=== PATIENT | female | born 1985 | race Caucasian/White ===

== ENCOUNTER 2017-07-03 18:17 | Emergency (ER) | payer OTHER ==
[~2017-07-03] VITALS: Ht 152.4 cm; Wt 117.9 kg
--- NOTE | 2017-07-03 18:52 | NUR ---
A/OX4, AMBULATORY TO ED BED 07, PT IS C/O PAIN TO RT SIDE OF BACK AND RT UPPER QUADRANT X24HRS, N/V/D. PT STS SHE HAS A HISTORY OF GALL STONES. NAD VSS RR EVEN AND UNLABORED. SKIN IS WARM AND DIAPHORETIC. PENDING ER MD EVALUATION
[2017-07-03] MEDS ORDERED: MORPHINE SULFATE INJ 2 MG/ML DISP.SYRIN IV ONE (19:00)
[2017-07-03] MEDS ORDERED: IV NS 0.9% 1,000 ML BAG IV ONE (19:00)
[2017-07-03] MEDS ORDERED: ONDANSETRON HCL/PF 4 MG/2 ML VIAL IVP ONE (19:00)
[2017-07-03 19:21] LABS: APPEARANCE,URINE CLEAR (CLEAR); BILIRUBIN,URINE NEGATIVE (NEGATIVE); BLOOD, URINE 3+ Ery/uL (NEGATIVE); COLOR,URINE YELLOW (YELLOW); KETONES,URINE NEGATIVE (NEGATIVE); LEUKOCYTE ESTERASE ,URINE NEGATIVE (NEGATIVE); NITRITE, URINE NEGATIVE (NEGATIVE); PH,URINE 5.5 (5.0-8.0); PROTEIN,URINE NEGATIVE (NEGATIVE); UGLUCOSE NEGATIVE (NEGATIVE); UROBILINOGEN,URINE 0.2 EU/dL (0.2)
--- NOTE | 2017-07-03 19:21 | NUR ---
REPORT RECEIVED FROM DEMETRIS STERLING FOR DEBBY.
--- NOTE | 2017-07-03 19:32 | NUR ---
PT TO CT VIA STRETCHER.
[2017-07-03 19:39] LABS: BASOPHILS % (AUTO) 0.3 % (0.0-2.0); EOSINOPHILS % (AUTO) 0.2 % (0.0-6.0); HEMATOCRIT 42 % (33-45); HEMOGLOBIN 14.1 g/dL (11.5-14.8); MEAN CORPUSCULAR HEMOGLOBIN 29 PG (26.0-33.0); MEAN CORPUSCULAR HGB CONC 34 g/dl (31.0-36.0); MEAN CORPUSCULAR VOLUME 87 fL (82-100); MONOCYTES # (AUTO) 0.3 /CMM (0.1-1.30); MONOCYTES % (AUTO) 4.3 % (2.0-12.0); NEUTROPHILS # (AUTO) 6.8 /CMM (1.8-8.9); NEUTROPHILS % (AUTO) 83.2 % (43.0-81.0); PLATELET COUNT (AUTO) 162 /CMM (150-450); RDW COEFFICIENT OF VARIATION 13.3 (11.5-15.0); RED BLOOD CELL COUNT(AUTO) 4.78 MIL/uL (4.0-5.2); WHITE BLOOD COUNT (AUTO) 8.2 K/uL (4.3-11.0)
[2017-07-03 19:43] LABS: CALCIUM, SERUM 8.3 mg/dL (8.5-10.1); CREATININE 0.8 mg/dL (0.6-1.3); POTASSIUM 3.5 mmol/L (3.5-5.1)
[2017-07-03 19:48] LABS: ALBUMIN 3.6 g/dL (3.4-5.0); BILIRUBIN,DIRECT 0.1 mg/dL (0.0-0.2); BILIRUBIN,TOTAL 0.5 mg/dL (0.2-1.0); TOTAL PROTEIN, SERUM 7.6 g/dL (6.4-8.2)
[2017-07-03 19:57] LABS: BACTERIA,URINE 1+ /HPF (None Seen); MUCUS,URINE Few /LPF (None Seen)
[2017-07-03] MEDS ORDERED: ONDANSETRON HCL/PF 4 MG/2 ML VIAL ONE (20:40)
[2017-07-03] MEDS ORDERED: MORPHINE SULFATE INJ 2 MG/ML DISP.SYRIN ONE (20:40)
[2017-07-03] MEDS ORDERED: MORPHINE SULFATE INJ 4 MG/ML DISP.SYRIN ONE (20:41)
[2017-07-03] MEDS ORDERED: KETOROLAC TROMETHAMINE INJ 30 MG/ML VIAL IV ONE (21:30)
[2017-07-03] MEDS ORDERED: KETOROLAC TROMETHAMINE INJ 30 MG/ML VIAL ONE (21:32)
[2017-07-03 22:05] VITALS: BP 119/64
--- NOTE | 2017-07-03 22:06 | NUR ---
Patient discharged to family member for transport home in stable condition. Written and verbal after care instructions given. Patient verbalizes understanding of instruction. IV removed. Catheter intact and site benign. Pressure and 4x4 applied to site. No bleeding noted. Pt ambulatory with a steady gait. VSS, NAD noted on DC. Denies complaint on DC.
== END 2017-07-03 22:07 | disposition home or self-care (01) ==
LOC: ER 18:26
DX: K80.50 Calculus of bile duct without cholangitis or cholecystitis without obstruction (principal); E66.9 Obesity, unspecified; Z88.2 Allergy status to sulfonamides; Z87.442 Personal history of urinary calculi
CPT/HCPCS: 36415; 74176; 76705; 80048; 80076; 81001; 83605; 83690; 84703; 85025; 96361; 96374; 96375; 99285; A4606; J1885; J2270 ×2; J2405; J7030; Z7610; 81000-TC

== ENCOUNTER 2017-07-04 13:18 | Outpatient (CLI) | payer OTHER ==
[2017-07-04 13:26] VITALS: BP 109/61
== END 2017-07-04 23:59 | disposition home or self-care (01) ==
LOC: MSC 13:18
PROVIDERS: ATTEND Internal Medicine
DX: K80.20 Calculus of gallbladder without cholecystitis without obstruction (principal); E66.9 Obesity, unspecified

== ENCOUNTER 2017-07-04 15:00 | Inpatient (IN) | payer OTHER ==
[~2017-07-04] VITALS: Ht 152.4 cm; Wt 110.0 kg
--- NOTE | 2017-07-04 15:20 | NUR ---
PT CAME IN WITH C/O ABD PAIN W/ NAUSEA, SENT FROM THE CLINIC FOR POSSIBLE SURGERY. VSS. SEEN BY PA FOR EVAL. PT WAS HERE FOR SAME SYMPTOMS YESTERDAY. SAFETY AND COMFORT MEASURES PROVIDED. PT GOWNED. FAMILY MEMBER REMAINS AT BS. WILL MONITOR.
[2017-07-04] MEDS ORDERED: ONDANSETRON HCL/PF 4 MG/2 ML VIAL ONE (15:58)
[2017-07-04] MEDS ORDERED: MORPHINE SULFATE INJ 4 MG/ML DISP.SYRIN ONE (15:59)
[2017-07-04] MEDS ORDERED: IV NS 0.9% 1,000 ML BAG IV ONE (16:00)
[2017-07-04] MEDS ORDERED: ONDANSETRON HCL/PF 4 MG/2 ML VIAL IVP ONE (16:00)
[2017-07-04] MEDS ORDERED: MORPHINE SULFATE INJ 2 MG/ML DISP.SYRIN IV ONE (16:00)
--- NOTE | 2017-07-04 16:00 | NUR ---
IV ACCESS STARTED. BLOOD DRAWN FOR LABS. MEDICATED ORDERED.
[2017-07-04 16:08] LABS: BASOPHILS # (AUTO) 0.2 /CMM (0.0-0.2); BASOPHILS % (AUTO) 3.1 % (0.0-2.0); EOSINOPHILS % (AUTO) 0.5 % (0.0-6.0); HEMATOCRIT 40 % (33-45); HEMOGLOBIN 13.3 g/dL (11.5-14.8); LYMPHOCYTES # (AUTO) 1.1 /CMM (0.8-4.8); LYMPHOCYTES % (AUTO) 20.4 % (20.0-44.0); MEAN CORPUSCULAR HEMOGLOBIN 29 PG (26.0-33.0); MEAN CORPUSCULAR HGB CONC 34 g/dl (31.0-36.0); MEAN CORPUSCULAR VOLUME 85 fL (82-100); MONOCYTES # (AUTO) 0.4 /CMM (0.1-1.30); MONOCYTES % (AUTO) 7.5 % (2.0-12.0); NEUTROPHILS # (AUTO) 3.7 /CMM (1.8-8.9); NEUTROPHILS % (AUTO) 68.5 % (43.0-81.0); PLATELET COUNT (AUTO) 180 /CMM (150-450); RED BLOOD CELL COUNT(AUTO) 4.64 MIL/uL (4.0-5.2); WHITE BLOOD COUNT (AUTO) 5.4 K/uL (4.3-11.0)
[2017-07-04 16:10] LABS: CALCIUM, SERUM 8.7 mg/dL (8.5-10.1); CREATININE 0.5 mg/dL (0.6-1.3); POTASSIUM 4.5 mmol/L (3.5-5.1)
[2017-07-04 16:14] LABS: INR 0.93 (0.85-1.15)
[2017-07-04 16:16] LABS: ALBUMIN 3.2 g/dL (3.4-5.0); BILIRUBIN,DIRECT 0.1 mg/dL (0.0-0.2); BILIRUBIN,TOTAL 0.3 mg/dL (0.2-1.0); TOTAL PROTEIN, SERUM 7.2 g/dL (6.4-8.2)
[2017-07-04 16:41] LABS: APPEARANCE,URINE Clear (CLEAR); BILIRUBIN,URINE Negative (NEGATIVE); BLOOD, URINE Large Ery/uL (NEGATIVE); KETONES,URINE Negative (NEGATIVE); LEUKOCYTE ESTERASE ,URINE Negative (NEGATIVE); NITRITE, URINE Negative (NEGATIVE); PROTEIN,URINE Negative (NEGATIVE); UGLUCOSE Negative (NEGATIVE)
[2017-07-04 16:42] LABS: COLOR,URINE Dark Yellow (YELLOW)
[2017-07-04 16:47] LABS: BACTERIA,URINE Rare /HPF (None Seen); SQUAMOUS EPITHELIAL CELL,UR Moderate /HPF (None Seen); WBC,URINE 0-3 /HPF (0-3)
--- NOTE | 2017-07-04 17:19 | NUR ---
PAGED MEDICARE BILLER PANEL
--- NOTE | 2017-07-04 17:49 | NUR ---
CALLED NIKIA MIRANDA FOR MS ROOM IN FIRST FLOOR PER PT'S REQUEST AND PER 'S PT CANNOT TOLERATE ELEVATORS.
[2017-07-04] MEDS ORDERED: ONDANSETRON HCL/PF 4 MG/2 ML VIAL IVP PRN (18:30)
[2017-07-04] MEDS ORDERED: Z GUARD REMEDY 2 OZ OINT TP PRN (18:30)
[2017-07-04] MEDS ORDERED: ACETAMINOPHEN 325 MG TABLET PO PRN (18:30)
[2017-07-04] MEDS ORDERED: MAGNESIUM HYDROXIDE 30 ML UDC PO PRN (18:30)
[2017-07-04] MEDS ORDERED: HYDROMORPHONE INJ 2 MG/ML DISP.SYRIN IV PRN (18:30)
[2017-07-04] MEDS ORDERED: MAG HYDROX/AL HYDROX/SIMETH 30 ML UDC PO PRN (18:30)
[2017-07-04] MEDS ORDERED: ZOLPIDEM TARTRATE 5 MG TABLET PO PRN (18:30)
--- NOTE | 2017-07-04 18:34 | NUR ---
REPORT GIVEN TO BOSSMAN WILLSON FOR MS 112.
[2017-07-04] MEDS: IV D5/0.45 NACL 1,000 ML IV PRN (18:45)
[2017-07-04 18:52] VITALS: BP 110/63
--- NOTE | 2017-07-04 18:54 | NUR ---
MS/SAFETY PIN ASSEMBLING MACHINE OPERATOR RECEIVED PATIENT FROM ER IN STABLE CONDITION. A/O X4. NO SIGNS OF ACUTE DISTRESS. NO COMPLAIN OF PAIN OR DISCOMFORT. AMBULATORY, CONTINENT OF BOWEL AND BLADDER. ADMITTING DIAGNOSIS OF ABDOMINAL PAIN/REMOVAL OF GALL STONES. ALL NEEDS ATTENDED TO. CALL LIGHT WITHIN REACH. WILL ENDORSE TO NEXT SHIFT FOR CONTINUITY OF CARE.
--- NOTE | 2017-07-04 19:20 | NUR ---
MS/RN NOTES RECEIVED PT. LYING IN BED. AWAKE, ALERT AND ORIENTED X4. BREATHING EVEN, AND UNLABORED ON ROOM AIR. NO SOB, RESPIRATORY DISTRESS OR COMPLAINTS OF PAIN NOTED AT THIS TIME. PT. WITH RIGHT HAND 20 GAUGE PERIPHERAL IV PRESENT, PATENT AND INTACT ADMINISTERING TO PT. D5 1/2 NS @ 75 ML/HR. PT. WITH FAMILY MEMBER PRESENT AT BEDSIDE. BED LOCKED AND IN LOWEST POSITION, SIDE RAILS UP X2, CALL LIGHT WITHIN REACH, WILL CONTINUE TO MONITOR.
--- NOTE | 2017-07-04 19:30 | NUR ---
MS/RN NOTES PATIENT REMAINS NPO AT THIS TIME PENDING HIDA SCAN. PER DAYSHIFT NURSE RADIOLOGY WAS UNABLE TO DUE THE HIDASCAN EARLIER BECAUSE PT. HAD RECEIVED MORPHINE IN THE ER AND PER RADIOLOGY PT. HAS TO HAVE 8 HOURS WITHOUT MORPHINE(PAIN MEDICATION) BEFORE HAVING THE HIDA SCAN. WILL CONTINUE TO MONITOR.
--- NOTE | 2017-07-05 06:37 | NUR ---
MS/RN NOTES PT. IS LYING IN BED RESTING. BREATHING EVEN, AND UNLABORED ON ROOM AIR. NO SOB, RESPIRATORY DISTRESS OR COMPLAINTS OF PAIN NOTED AT THIS TIME. PT. WITH RIGHT HAND 20 GAUGE PERIPHERAL IV PRESENT, PATENT AND INTACT ADMINISTERING TO PT. D5 1/2 NS @ 75 ML/HR. PT. WITH FAMILY MEMBER PRESENT AT BEDSIDE. ALL PT. NEEDS MET. PT. REMAINS NPO PENDING HIDA SCAN. BED LOCKED AND IN LOWEST POSITION, SIDE RAILS UP X2, CALL LIGHT WITHIN REACH, WILL ENDORSE TO DAYSHIFT NURSE FOR CONTINUITY OF CARE.
[2017-07-05 07:28] LABS: BASOPHILS % (AUTO) 0.4 % (0.0-2.0); EOSINOPHILS # (AUTO) 0.1 /CMM (0.0-0.7); EOSINOPHILS % (AUTO) 1.3 % (0.0-6.0); HEMATOCRIT 39 % (33-45); HEMOGLOBIN 13.1 g/dL (11.5-14.8); LYMPHOCYTES # (AUTO) 1.5 /CMM (0.8-4.8); LYMPHOCYTES % (AUTO) 34.7 % (20.0-44.0); MEAN CORPUSCULAR HEMOGLOBIN 30 PG (26.0-33.0); MEAN CORPUSCULAR HGB CONC 34 g/dl (31.0-36.0); MEAN CORPUSCULAR VOLUME 87 fL (82-100); MONOCYTES # (AUTO) 0.5 /CMM (0.1-1.30); NEUTROPHILS # (AUTO) 2.2 /CMM (1.8-8.9); NEUTROPHILS % (AUTO) 51.6 % (43.0-81.0); PLATELET COUNT (AUTO) 170 /CMM (150-450); RDW COEFFICIENT OF VARIATION 13.7 (11.5-15.0); RED BLOOD CELL COUNT(AUTO) 4.41 MIL/uL (4.0-5.2); WHITE BLOOD COUNT (AUTO) 4.3 K/uL (4.3-11.0)
[2017-07-05 07:35] LABS: BILIRUBIN,TOTAL 0.3 mg/dL (0.2-1.0); CALCIUM, SERUM 8.4 mg/dL (8.5-10.1); CREATININE 0.6 mg/dL (0.6-1.3); MAGNESIUM 1.9 mg/dL (1.8-2.4); PHOSPHORUS 3.2 mg/dL (2.5-4.9); POTASSIUM 3.5 mmol/L (3.5-5.1); TOTAL PROTEIN, SERUM 6.6 g/dL (6.4-8.2)
[2017-07-05 08:00] VITALS: BP 99/58
--- NOTE | 2017-07-05 08:10 | NUR ---
RN MED-SURG NOTE: PATIENT IN BED, AWAKE ALERT AND VERBALLY RESPONSIVE. FAMILY PRESENT AT THE BEDSIDE. KEPT NPO DUE TO THE HIDA SCAN TEST IN AM. RESPIRATION EVEN AND UNLABORED. SATURATING WELL IN RA 97%. (R) HAND IV LINE NOTED PATENT AND INTACT W/ D5HNS @ 75ML/HR. CALL LIGHT WITHIN REACH. BED ALARM AND LOCKED AT ALL TIMES. NEEDS ANTICIPATED. DISCUSSED W/ PATIENT RE: HIDA SCAN AND THAT MORPHINE CAN NOT BE ADMINISTER 4 HR PRIOR TO THE TEST. PER DEWAYNE FROM RADIOLOGY DEPT. THE TEST IS SCHEDULE AT 1130 AM.
--- NOTE | 2017-07-05 11:10 | NUR ---
RN MED-SURG NOTE: PATIENT WAS BROUGHT TO RADIOLOGY DEPT. FOR HIDA SCAN TEST. ON STABLE CONDITION. ABLE TO WALK AND WAS ACCOMPANIED BY FAMILY MEMBER TO THE TEST. (R) UPPER QUADRANT PAIN 6/10 BUT STATED THAT IT'S TOLERABLE FOR HER.
--- NOTE | 2017-07-05 12:45 | NUR ---
RN MED-SURG NOTE: PATIENT CAME BACK FROM RADIOLOGY DEPT. PER BACK UP WORKER, HE WILL PICK-UP THE PT AGAIN AT 1400 TODAY TO REPEAT THE HIDA SCAN. PATIENT KEPT NPO AND AWARE OF THE REPEAT OF THE TEST TODAY. FAMILY PRESENT AT THE BEDSIDE.
[2017-07-05] MEDS: IV D5/0.45 NACL 1,000 ML IV PRN ×2 (13:04→19:52)
--- NOTE | 2017-07-05 14:25 | NUR ---
RN MED-SURG NOTE: PATIENT BROUGHT TO THE RADIOLOGY DEPT. FOR THE HIDA SCAN. ON STABLE CONDITION. PT SEATED ON A WHEELCHAIR FOR TRANSPORT.
--- NOTE | 2017-07-05 15:00 | NUR ---
RN MED-SURG NOTE: PATIENT BROUGHT BACK FROM RADIOLOGY DEPT. ON STABLE CONDITION. IV LINE ON THE (R) HAND NOTED WITH REDNESS. PATIENT REFUSED TO HAVE ANOTHER LINE INSERTED TO HER.
--- NOTE | 2017-07-05 17:56 | NUR ---
RELAYED TO DR. ARIZMENDI HIDDerick SCAN RESULT WITH ORDER TO START CLEAR LIQUID.AND AUREA DE LEON SPOKE W/ DR. ARIZMENDI .AWAITS PRIMARY MD.
--- NOTE | 2017-07-05 19:00 | NUR ---
RN MED-SURGE NOTE: PER CN, DR. OLIVAREZ WAS AWARE THAT THE PATIENT WAS REFUSING TO LEAVE AND GET TRANSFERRED TO [facility] DUE TO INSURANCE ISSUE. NO CHANGES ON THE CURRENT ORDERS AT THIS TIME. WILL ENDORSE TO PM SHIFT RN FOR CONTINUITY OF CARE.
[2017-07-05 20:00] VITALS: BP 113/60
[2017-07-05] MEDS: HYDROCODONE/APAP 5/325MG 1 EACH TABLET PO PRN (22:59)
[2017-07-06 04:00] VITALS: BP 111/68
--- NOTE | 2017-07-06 06:30 | NUR ---
pt alert,oriented,ambulatory. pt with abdominal pain planned for lap joey if HIDA scan results positive. pt aware she is only clears then npo after midnight. when i went ot the room to try another attempt of iv insertion ,pt sitting with cousin both eating chicken salad. pt instructed to be npo after midnight for possible surgery.pt verbalized understanding. attempted to place iv line but failed twice and pt refused anymore attempt.given norco for pain with good relief,vss,afebrile. had bm this morning pain remains the same. will continue to monitor.call light at reached.
[2017-07-06 08:00] VITALS: BP 102/60
[2017-07-06] MEDS: HYDROCODONE/APAP 5/325MG 1 EACH TABLET PO PRN ×2 (08:44→15:29)
--- NOTE | 2017-07-06 19:21 | NUR ---
ANTONETTE ALEXANDRA CALLED BACK FOR SHUKRI CANNOT GIVE SCRIPT SINCE SHE DONT HAVE TRIPLICATE FORM,INSTRUCTED PT. CAN COMEBACK IN AM FOR SXCRILORENA,ENDORSED TO TILE SETTER SUPERVISOR.
--- NOTE | 2017-07-06 21:28 | NUR ---
PT DISCHARGED HOME WITH COUSIN, DISCHARGED INSTRUCTION GIVEN,TRIPLICATE FOR DARWIN HANDED TO PT, COPY IN THE CHART,PT WILL FOLLOW-UP WITH PCP. TRANSPORTED BY WHEELCHAIR TO [facility], ALL BELONGINGS SENT OUT.
== END 2017-07-06 21:36 | disposition home or self-care (01) | DRG 445 ==
LOC: ER 15:05 → MEDSG1 18:17
PROVIDERS: ADMIT Internal Medicine; ATTEND Internal Medicine
PROC: B547ZZA Ultrasonography of Left Subclavian Vein, Guidance (ICD-10-PCS; principal; 2017-07-04)
PROC: 05H633Z Insertion of Infusion Device into Left Subclavian Vein, Percutaneous Approach (ICD-10-PCS; principal; 2017-07-04)
DX: K80.00 Calculus of gallbladder with acute cholecystitis without obstruction (principal); Z68.42 Body mass index [BMI] 45.0-49.9, adult; D68.59 Other primary thrombophilia; E44.0 Moderate protein-calorie malnutrition; E66.01 Morbid (severe) obesity due to excess calories; E66.9 Obesity, unspecified; Z88.2 Allergy status to sulfonamides
CPT/HCPCS: 36415; 71045-TC; 78226; 80048-TC; 80053-TC; 80061-TC; 80076-TC; 81000-TC; 82150-TC; 83690-TC; 83735-TC; 84100-TC; 84703-TC; 85025-TC; 85730-TC; 87081-TC; 93307-TC; A4606; A9537; J2270; J2405; J3490; Z7610

== ENCOUNTER 2018-02-14 22:14 | Emergency (ER) | payer MEDICAID, OTHER ==
[~2018-02-14] VITALS: Ht 152.4 cm; Wt 113.4 kg
--- NOTE | 2018-02-14 22:20 | NUR ---
PT BB FRIEND C/O LQ ABDOMINAL PAIN AND NEW "BUMPS" ON VAGINAL AREA, X2 DAYS. NAD NOTED, VSS, RESP EVEN AND UNLABORED, PT WAS PUT ON MONITOR AND HOSPITAL GOWMD Mir AT BS.
[2018-02-14] MEDS ORDERED: HYDROCODONE/APAP 5/325MG 1 EACH TABLET ONE (22:34)
[2018-02-14] MEDS ORDERED: HYDROCODONE/APAP 5/325MG 1 EACH TABLET PO ONE (23:00)
--- NOTE | 2018-02-14 23:16 | NUR ---
wet mount collected sent to lab
--- NOTE | 2018-02-14 23:25 | NUR ---
received report from DEMETRIS Noel. Will continue with pt's DEBBY
[2018-02-14] MEDS ORDERED: AZITHROMYCIN 250 MG TABLET ONE (23:56)
[2018-02-14] MEDS ORDERED: ONDANSETRON 4 MG TAB.RAPDIS ONE (23:57)
[2018-02-15] MEDS ORDERED: ONDANSETRON 4 MG TAB.RAPDIS SL ONE
[2018-02-15] MEDS ORDERED: AZITHROMYCIN 250 MG TABLET PO ONE
[2018-02-15] MEDS ORDERED: CEFTRIAXONE 1 G VIAL IM ONE
[2018-02-15] MEDS ORDERED: CEFTRIAXONE 1 G VIAL ONE (00:14)
[2018-02-15] MEDS ORDERED: LIDOCAINE /MPF 1% VIAL 5 ML VIAL ONE (00:15)
[2018-02-15] MEDS ORDERED: HYDROCODONE/APAP 5/325MG 1 EACH TABLET ONE (00:29)
[2018-02-15] MEDS ORDERED: HYDROCODONE/APAP 5/325MG 1 EACH TABLET PO ONE (00:30)
--- NOTE | 2018-02-15 00:43 | NUR ---
adminitered ordered Rocephin 0.25g IM on Lt arm.
--- NOTE | 2018-02-15 00:45 | NUR ---
administered ordered meds
[2018-02-15] MEDS ORDERED: FLUCONAZOLE (100 MG) 100 MG TABLET PO ONE (01:00)
[2018-02-15] MEDS ORDERED: FLUCONAZOLE (100 MG) 100 MG TABLET ONE (01:01)
[2018-02-15 01:33] VITALS: BP 124/80
== END 2018-02-15 01:34 | disposition home or self-care (01) ==
LOC: ER 22:17
DX: B37.3 Candidiasis of vulva and vagina (principal); N89.8 Other specified noninflammatory disorders of vagina; R10.2 Pelvic and perineal pain; E66.01 Morbid (severe) obesity due to excess calories; Z68.42 Body mass index [BMI] 45.0-49.9, adult; Z88.2 Allergy status to sulfonamides
CPT/HCPCS: 76856; 84703; 87210; 87491; 87591; 96372; 99285; A4606; J0696; J3490; Q0162; Z7610

== ENCOUNTER 2018-03-12 01:47 | Inpatient (IN) | payer MEDICAID ==
[~2018-03-12] VITALS: Ht 152.4 cm; Wt 112.9 kg
--- NOTE | 2018-03-12 02:23 | NUR ---
TO ER BED 12 C/O EPIGASTRIC PAIN THAT RADIATES TO THE RT SIDE OF ABDOMEN. AA/OX 4. NO S/S SOB. SKIN PINK, WARM, DRY. "I HAVE A HISTORY OF GALL STONES." AMBULATED TO HOSPITAL BED WITH STABLE GAIT. MOVES ALL EXTREMITIES WELL. PEDAL PULSES PRESENT. ACTIVE BOWEL SOUNDS NOTED. NAD. VSS. STABLE CONDITION. WILL CONTINUE TO MONITOR.
[2018-03-12] MEDS ORDERED: ONDANSETRON HCL/PF 4 MG/2 ML VIAL ONE (02:26)
[2018-03-12] MEDS ORDERED: MORPHINE SULFATE INJ 4 MG/ML DISP.SYRIN ONE (02:27)
[2018-03-12] MEDS ORDERED: IV NS 0.9% 1,000 ML BAG IV ONE (02:30)
[2018-03-12] MEDS ORDERED: ONDANSETRON HCL/PF 4 MG/2 ML VIAL IVP ONE (02:30)
[2018-03-12] MEDS ORDERED: MORPHINE SULFATE INJ 2 MG/ML DISP.SYRIN IV ONE (02:30)
--- NOTE | 2018-03-12 02:30 | NUR ---
PER RADIOLOGY, KYM PAGED.
[2018-03-12 02:42] LABS: BASOPHILS % (AUTO) 0.2 % (0.0-2.0); EOSINOPHILS % (AUTO) 0.4 % (0.0-6.0); HEMATOCRIT 39 % (33-45); HEMOGLOBIN 12.8 g/dL (11.5-14.8); LYMPHOCYTES # (AUTO) 1.1 /CMM (0.8-4.8); LYMPHOCYTES % (AUTO) 11.1 % (20.0-44.0); MEAN CORPUSCULAR HGB CONC 33 g/dl (31.0-36.0); MEAN CORPUSCULAR VOLUME 89 fL (82-100); MONOCYTES # (AUTO) 0.6 /CMM (0.1-1.30); MONOCYTES % (AUTO) 5.7 % (2.0-12.0); NEUTROPHILS # (AUTO) 8.4 /CMM (1.8-8.9); NEUTROPHILS % (AUTO) 82.6 % (43.0-81.0); PLATELET COUNT (AUTO) 223 /CMM (150-450); RDW COEFFICIENT OF VARIATION 13.5 (11.5-15.0); RED BLOOD CELL COUNT(AUTO) 4.41 MIL/uL (4.0-5.2); WHITE BLOOD COUNT (AUTO) 10.1 K/uL (4.3-11.0)
[2018-03-12 02:55] LABS: APPEARANCE,URINE CLEAR (CLEAR); BILIRUBIN,URINE NEGATIVE (NEGATIVE); BLOOD, URINE NEGATIVE Ery/uL (NEGATIVE); CALCIUM, SERUM 9.1 mg/dL (8.5-10.1); CARBON DIOXIDE 29 mmol/L (21-32); CHLORIDE 103 mmol/L (98-107); COLOR,URINE YELLOW (YELLOW); CREATININE 0.7 mg/dL (0.6-1.3); GLUCOSE 117 mg/dL (74-106); KETONES,URINE NEGATIVE (NEGATIVE); LEUKOCYTE ESTERASE ,URINE NEGATIVE (NEGATIVE); NITRITE, URINE NEGATIVE (NEGATIVE); PH,URINE 7.5 (5.0-8.0); POTASSIUM 3.6 mmol/L (3.5-5.1); PROTEIN,URINE NEGATIVE (NEGATIVE); SODIUM SERUM 139 mmol/L (136-145); UGLUCOSE NEGATIVE (NEGATIVE); UREA NITROGEN, BLOOD 18 mg/dL (7-18); UROBILINOGEN,URINE 0.2 EU/dL (0.2)
[2018-03-12 03:00] LABS: ALANINE AMINOTRANSFERASE 136 U/L (12-78); ALBUMIN 3.5 g/dL (3.4-5.0); ALKALINE PHOSPHATASE 120 U/L (46-116); ASPARTATE AMINOTRANSFERASE 160 U/L (15-37); BILIRUBIN,DIRECT 0.2 mg/dL (0.0-0.2); BILIRUBIN,TOTAL 0.5 mg/dL (0.2-1.0); LIPASE 865 U/L (73-393); TOTAL PROTEIN, SERUM 7.3 g/dL (6.4-8.2)
[2018-03-12 03:03] LABS: TROPONIN I < 0.017 ng/mL (0.00-0.056)
--- NOTE | 2018-03-12 03:15 | NUR ---
Patient is resting comfortably in bed with eyes closed. Easily aroused. VSS
--- NOTE | 2018-03-12 03:19 | NUR ---
KYM AT BEDSIDE
--- NOTE | 2018-03-12 03:50 | NUR ---
PT BROUGHT TO CT
--- NOTE | 2018-03-12 03:51 | NUR ---
PT RETURNED FROM CT.
--- NOTE | 2018-03-12 04:32 | NUR ---
CALLED DIOR FOR PENDING CT ABD PELVIS; TO BE READ NEXT
--- NOTE | 2018-03-12 04:42 | NUR ---
DR. MENJIVAR AT BEDSIDE SPEAKING TO PT REGARDING POC.
--- NOTE | 2018-03-12 04:49 | NUR ---
DR. MOSS SPEAKING TO DR. MENJIVAR REGARDING ADMISSION/POC
--- NOTE | 2018-03-12 04:55 | NUR ---
CALLED RN SUP FOR MS BED.
--- NOTE | 2018-03-12 04:58 | NUR ---
BED M/S 112
[2018-03-12] MEDS ORDERED: MECLIZINE HCL 12.5 MG TABLET PO ONE (05:00)
[2018-03-12] MEDS ORDERED: MECLIZINE HCL 25 MG TABLET ONE (05:02)
--- NOTE | 2018-03-12 05:09 | NUR ---
REPORT GIVEN TO M/S DEMETRIS WHEELER
--- NOTE | 2018-03-12 05:11 | NUR ---
PT TRANSPORTED TO M/S UNIT STABLE CONDITION. NICK. LISSA.
[2018-03-12 05:36] VITALS: BP 104/52
[2018-03-12] MEDS ORDERED: ACETAMINOPHEN 650 MG/SUPP.RECT RC PRN (07:00)
--- NOTE | 2018-03-12 07:00 | NUR ---
ms rn initial notes received pt in bed. pt has pain level 8 in abd area. safety precautions in place. call light in reach. will cont to monitor.
[2018-03-12] MEDS: MORPHINE SULFATE INJ 2 MG/ML DISP.SYRIN IV PRN ×3 (07:51→13:34)
[2018-03-12 08:00] VITALS: BP 101/60
[2018-03-12] MEDS: ONDANSETRON HCL/PF 4 MG/2 ML VIAL IVP PRN (08:12)
[2018-03-12] MEDS: PANTOPRAZOLE 40 MG VIAL IV SCH (09:57)
[2018-03-12] MEDS: Potassium Chloride 20 MEQ in IV D5/ 0.9% NACL 1,000 ML IV PRN ×2 (10:13→23:13)
[2018-03-12] MEDS ORDERED: PIPERACILLIN /TAZOBACTAM 4.5 G in IV D5W 50 ML IV SCH (12:00)
[2018-03-12] MEDS: PIPERACILLIN /TAZOBACTAM 3.375 G in IV D5W 50 ML IV SCH ×3 (12:53→23:13)
--- NOTE | 2018-03-12 13:27 | NUR ---
ms rn notes pt requested morphine, changed mind when brought to room. pt states can tolerate pain at rate of 8. will cont to monitor.
[2018-03-12 16:00] VITALS: BP 132/75
--- NOTE | 2018-03-12 19:01 | NUR ---
MS RN CLOSING NOTES PT DENIES INTOLERABLE PAIN AT THIS TIME. PT'S FAMILY AT BEDSIDE. IVF RUNNING. ALL NEEDS ATTENDED TO. CALL LIGHT IN REACH. SAFETY PRECAUTIONS MAINTAINED. ENDORSED TO PM NURSE FOR DEBBY.
--- NOTE | 2018-03-12 19:30 | NUR ---
RECEIVED PATIENT UP IN BED. AO X 3, ABLE TO MAKE NEEDS KNOWN. NO ACUTE DISTRESS NOTED. MONITORED FOR PAIN. IV SITE PATENT, INTACT; IVF INFUSING ORDERED. SAFETY REMINDERS GIVEN. ON LOW BED WITH BILATERAL UPPER SIDE RAILS UP. CALL RODRIGUEZ WITHIN EASY REACH. WILL CONTINUE TO MONITOR.
[2018-03-12 20:00] VITALS: BP 142/76
[2018-03-13 04:00] VITALS: BP 121/62
--- NOTE | 2018-03-13 06:19 | NUR ---
PATIENT ASLEEP, EASILY AROUSABLE. RESPIRATIONS EVEN. NO SIGNS OF PAIN NOTED. DUE MEDS GIVEN ORDERED. IVF INFUSING ORDERED. NEEDS ATTENDED. SAFETY PRECAUTIONS AND COMFORT MEASURES IN PLACE. WILL GIVE REPORT TO DAY SHIFT FOR CONTINUITY OF CARE.
[2018-03-13] MEDS: PIPERACILLIN /TAZOBACTAM 3.375 G in IV D5W 50 ML IV SCH ×4 (06:32→23:11)
[2018-03-13 06:59] LABS: BASOPHILS % (AUTO) 0.2 % (0.0-2.0); EOSINOPHILS % (AUTO) 2.4 % (0.0-6.0); HEMATOCRIT 36 % (33-45); HEMOGLOBIN 12.1 g/dL (11.5-14.8); LYMPHOCYTES # (AUTO) 1.7 /CMM (0.8-4.8); LYMPHOCYTES % (AUTO) 33.1 % (20.0-44.0); MEAN CORPUSCULAR HGB CONC 34 g/dl (31.0-36.0); MEAN CORPUSCULAR VOLUME 90 fL (82-100); MONOCYTES # (AUTO) 0.5 /CMM (0.1-1.30); MONOCYTES % (AUTO) 8.5 % (2.0-12.0); NEUTROPHILS % (AUTO) 55.8 % (43.0-81.0); PLATELET COUNT (AUTO) 189 /CMM (150-450); RDW COEFFICIENT OF VARIATION 13.7 (11.5-15.0); RED BLOOD CELL COUNT(AUTO) 4.03 MIL/uL (4.0-5.2); WHITE BLOOD COUNT (AUTO) 5.3 K/uL (4.3-11.0)
--- NOTE | 2018-03-13 07:20 | NUR ---
MS RN OPENING NOTES RECEIVED REPORT FROM PM NURSE.PATIENT IS AX0X4.ON ROOM AIR.NO SOB NO DISTRESS NOTED AT THIS TIME.ON IV L AC#18 WITH D5NS WITH KCL @100CC/HR.SITE IS INTACT AND PATENT.AUDITOR AT BEDSIDE.BED IS LOW AND IN LOCKED POSITION.SRX3.CALL LIGHT N REACH.WILL CONTINUE TO MONITOR.
[2018-03-13 07:21] LABS: BILIRUBIN,TOTAL 0.5 mg/dL (0.2-1.0); CALCIUM, SERUM 8.3 mg/dL (8.5-10.1); CREATININE 0.7 mg/dL (0.6-1.3); MAGNESIUM 1.9 mg/dL (1.8-2.4); PHOSPHORUS 3.1 mg/dL (2.5-4.9); POTASSIUM 3.5 mmol/L (3.5-5.1); TOTAL PROTEIN, SERUM 6.4 g/dL (6.4-8.2)
[2018-03-13 08:00] VITALS: BP_SYST 113; BP_SYST 84; BP_DIAS 46; BP_DIAS 72
[2018-03-13] MEDS: PANTOPRAZOLE 40 MG VIAL IV SCH (08:22)
--- NOTE | 2018-03-13 09:15 | NUR ---
RN NOTES PATIENT LEFT FOR HIDA SCAN IN STABLE CONDITION.
--- NOTE | 2018-03-13 10:00 | NUR ---
RN NOTES MADE AWARE ABOUT PATIENT HAD 6 LOOSE BM YESTERDAY PER MEMBER SERVICES COORDINATOR.NO BM IN MY SHIFT SO FAR AND LAST NIGHT.REQUESTED STOOL FOR C-DIFF.NO NEW ORDER NOW.
--- NOTE | 2018-03-13 10:50 | NUR ---
RN NOTES PATIENT BACK FROM HIDA SCAN .WAITING FOR RESULT.
[2018-03-13] MEDS: HYDROCORTISONE 1% CREAM 28.35 GM TUBE TP SCH ×2 (12:23→17:49)
--- NOTE | 2018-03-13 13:10 | NUR ---
HIDA SCAN WASW COMPLETED. TECH:RB
[2018-03-13] MEDS: ONDANSETRON HCL/PF 4 MG/2 ML VIAL IVP PRN ×2 (14:43→23:04)
[2018-03-13] MEDS: Potassium Chloride 20 MEQ in IV D5/ 0.9% NACL 1,000 ML IV PRN (14:44)
[2018-03-13 16:00] VITALS: BP 98/52
--- NOTE | 2018-03-13 16:21 | NUR ---
RN NOTES LEFT MESSAGE TO DR ARIZMENDI PER FOR CONSULT,HE IS NOT MANAGER OF APPLICATION DEVELOPMENT ,LEFT MESSAGE TO REGARDING CONSULT,WAITING FOR CONSULTATION.LEFT MESSAGE TO REGARDING PATIENT C/O DIZZINESS,AND CT ORDER.WAITING FOR CALL BACK.
[2018-03-13] MEDS: IV NS 0.9% 1,000 ML IV PRN (16:56)
--- NOTE | 2018-03-13 18:37 | NUR ---
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
--- NOTE | 2018-03-13 18:51 | NUR ---
MS RN CLOSING NOTES .PATIENT IS AX0X4.ON ROOM AIR.NO SOB NO DISTRESS NOTED AT THIS TIME.ON IV L AC#18 WITH NS @150CC/HR.SITE IS INTACT AND PATENT.STANDARDS ANALYST AT BEDSIDE.BED IS LOW AND IN LOCKED POSITION.SRX3.CALL LIGHT N REACH.NPO PAT MIDNIGHT.WILL ENDORSED TO PM NURSE FOR DEBBY.
[2018-03-13 20:00] VITALS: BP 108/40
[2018-03-13] MEDS ORDERED: MORPHINE SULFATE INJ 4 MG/ML DISP.SYRIN ONE (22:59)
[2018-03-13] MEDS: MORPHINE SULFATE INJ 2 MG/ML DISP.SYRIN IV PRN (23:09)
[2018-03-14] MEDS ORDERED: MORPHINE SULFATE INJ 4 MG/ML DISP.SYRIN ONE (02:09)
[2018-03-14] MEDS: MORPHINE SULFATE INJ 2 MG/ML DISP.SYRIN IV PRN (02:10)
[2018-03-14] MEDS: IV NS 0.9% 1,000 ML IV PRN ×2 (02:17→11:05)
[2018-03-14 04:00] VITALS: BP 120/60
[2018-03-14] MEDS: PIPERACILLIN /TAZOBACTAM 3.375 G in IV D5W 50 ML IV SCH ×2 (05:54→12:25)
--- NOTE | 2018-03-14 07:52 | NUR ---
RN NOTES RECEIVED PATIENT, A/0X4, BREATHING EVEN AND UNLABORED, ON ROOM AIR, ABLE TO MAKE NEEDS KNOWN, AMBULATORY, WITH COMPLAINTS OF PAIN 01/06- WILL ADMINISTER PAIN MEDICATION, WITH L AC G 18: INTACT AND PATENT UPON FLUSING, INFUSING NS AT 150 ML/HR. REMIND PATIENT OF NPO STATUS, ENCOURAGED VERBALIZATION OF FEELINGS AND CONCERN, CALL LIGHT MADE SURE WITHIN EASY REACH, SAFETY MEASURES IN PLACE, WILL CONTINUE TO MONITOR
[2018-03-14 08:00] VITALS: BP_SYST 113; BP_SYST 131; BP_DIAS 70; BP_DIAS 96
[2018-03-14] MEDS ORDERED: MORPHINE SULFATE INJ 4 MG/ML DISP.SYRIN IV PRN (08:02)
[2018-03-14] MEDS: PANTOPRAZOLE 40 MG VIAL IV SCH (08:23)
[2018-03-14] MEDS: ONDANSETRON HCL/PF 4 MG/2 ML VIAL IVP PRN (08:31)
[2018-03-14] MEDS: HYDROCORTISONE 1% CREAM 28.35 GM TUBE TP SCH (09:12)
--- NOTE | 2018-03-14 10:22 | NUR ---
RN NOTES SEEN AND EXAMINED BY DR. BAUER. WITH ORDER FOR PATIENT TRANSFER TO [facility]. PATIENT AND FAMILY ALSO ADVISED AND INFORMED BY CASE MANAGEMENT TEAM. PATIENT'S COUSIN KAYA (PATIENT'S CLEANING ATTENDANT) SIGN CONSENT FOR TRANSFER. AWAITING TIME FOR RHINESTONE SETTER . WILL CONTINUE TO MONITOR PATIENT
--- NOTE | 2018-03-14 16:30 | NUR ---
RN NOTES ENDORSE PATIENT TO [facility] FOR CONTINUITY OF CARE, SPOKE TO DEMETRIS CORDERO. ALL QUESTIONS ADDRESSED APPROPRIATELY.
--- NOTE | 2018-03-14 17:10 | NUR ---
RN NOTES PATIENT DISHARGED. EXIT CARE DONE. ALL QUESTIONS ADDRESS APPRORIATELY. DISCHARGE INSTRUCTION GIVEN TO PATIENT AND COUSIN KAYA WHOSE AT THE BEDSIDE. PATIENT NO MEDICATION AT TRANSFER. PATIENT REFUSE FLU VACCINE AT THIS TIME. ALL BELONGING ACCOUNTED AND GIVEN BACK TO THE PATIENT. PHOTOS NOT TAKEN DUE TO SKIN IS INTACT. PATIENT TRANPORTED OUT OF THE HOSPITAL ACCOMPANIED BY 2 EMT AND COUSIN KAYA.
== END 2018-03-14 17:12 | disposition short-term general hospital (02) | DRG 282 ==
LOC: ER 01:51 → MEDSG1 05:16
PROVIDERS: ADMIT Internal Medicine; ATTEND Internal Medicine
DX: K85.90 Acute pancreatitis without necrosis or infection, unspecified (principal); E66.01 Morbid (severe) obesity due to excess calories; K57.30 Diverticulosis of large intestine without perforation or abscess without bleeding; K80.10 Calculus of gallbladder with chronic cholecystitis without obstruction; Z68.42 Body mass index [BMI] 45.0-49.9, adult; K57.90 Diverticulosis of intestine, part unspecified, without perforation or abscess without bleeding; K42.9 Umbilical hernia without obstruction or gangrene; R74.0 Nonspecific elevation of levels of transaminase and lactic acid dehydrogenase [LDH]; R73.9 Hyperglycemia, unspecified; F10.11 Alcohol abuse, in remission
CPT/HCPCS: 36415; 70450-TC; 76705-TC; 78226; 80048-TC; 80053-TC; 80061-TC; 80076-TC; 81000-TC; 83690-TC; 83735-TC; 84100-TC; 84484-TC; 84702-TC; 84703-TC; 85025-TC; 86850-TC; 87081-TC; A4606; A9537; C9113; G0378; J2270; J2405; J2543; J3480; J3490; J7030; J7042; J7060; J8597; Z7610